=== PATIENT | male | born 1945 | race Caucasian/White ===

== ENCOUNTER → 2023-12-19 13:38 | Outpatient (REF) | payer MEDICARE, BC, SELFPAY | LOC: HWRAD 13:38 | PROVIDERS: ATTENDING PHYSICIAN Radiology Radiation Oncology; FAMILY PHYSICIAN Internal Medicine | DX: C44.722 Squamous cell carcinoma of skin of right lower limb, including hip (principal); C44.729 Squamous cell carcinoma of skin of left lower limb, including hip | CPT/HCPCS: 74177; Q9967 ==